=== PATIENT | female | born 2000 | race Two or more races ===

== ENCOUNTER 2019-04-20 15:55 | Observation (INO) | payer OTHER ==
[~2019-04-20] VITALS: Ht 154.9 cm; Wt 61.7 kg
[2019-04-20] MEDS ORDERED: PREN-380 PO (16:27)
[2019-04-20 18:08] VITALS: BP 121/88
== END 2019-04-20 19:40 | disposition home or self-care (01) ==
LOC: MLD 15:55
PROVIDERS: ADMIT Obstetrics & Gynecology; ATTEND Obstetrics & Gynecology
DX: O42.913 Preterm premature rupture of membranes, unspecified as to length of time between rupture and onset of labor, third trimester (principal); Z3A.30 30 weeks gestation of pregnancy
CPT/HCPCS: 76805; G0378; Q0092